=== PATIENT | male | born 1965 | race African-American/Black ===

== ENCOUNTER 2016-08-13 09:48 | Emergency (ER) | payer OTHER ==
[2016-08-13 10:39] LABS: BASOPHIL 0.2 % (0-2); EOSINOPHIL 0.6 % (0-5); HCT 43.4 % (42.0-52.0); HGB 15.3 g/dl (13.2-18.0); LYMPHOCYTE 16.9 % (15-48); MCHC 35.3 g/dL (32.0-36.0); MCV 93.5 fL (78.0-100.0); MONOCYTE 12.4 % (0-12); MPV 9.1 fL (6.0-9.5); NEUTROPHIL 69.9 % (41-80); PLT 333 K/uL (150-400); RBC 4.64 M/uL (4.70-6.00); RDW 13.9 % (11.5-14.0); WBC 8.9 K/uL (4.0-10.5)
[2016-08-13 10:59] LABS: ALBUMIN 4.6 g/dL (3.5-5.0); BILIRUBIN - TOTAL 0.4 mg/dL (0.1-1.0); CREATININE 0.8 mg/dL (0.7-1.2); POTASSIUM 4.3 mmol/L (3.5-5.1); TOTAL PROTEIN 8.6 g/dL (6.4-8.3)
[2016-08-13 11:01] LABS: LACTIC ACID 1.1 mmol/L (0.5-2.2)
[2016-08-13 12:08] LABS: BILIRUBIN NEGATIVE (NEGATIVE); BLOOD 1+ Ery/uL (NEGATIVE); CLARITY CLEAR (CLEAR); COLOR YELLOW (YELLOW); GLUCOSE (U) NORMAL (NORMAL); KETONE (U) TRACE mg/dL (NEGATIVE); LEUKOCYTES NEGATIVE Leu/uL (NEGATIVE); NITRITE NEGATIVE (NEGATIVE); PROTEIN TRACE (LOW) mg/dL (NEGATIVE); SPECIFIC GRAVITY 1.015 (1.001-1.030); UROBILINOGEN 0.2 mg/dL (0.2-1.0)
[2016-08-13 12:21] LABS: URINARY RBC RARE
== END 2016-08-13 13:56 | disposition home or self-care (01) ==
LOC: FER 09:48
PROVIDERS: Nurse Practitioner
DX: N50.9 Disorder of male genital organs, unspecified (principal); F17.210 Nicotine dependence, cigarettes, uncomplicated; Z88.0 Allergy status to penicillin; Z88.6 Allergy status to analgesic agent
CPT/HCPCS: 36415; 72193; 76870; 80053; 81001; 83605; 85025; Q9967

== ENCOUNTER 2020-08-15 19:08 | Emergency (ER) | payer OTHER ==
[~2020-08-15 19:08] MED LIST: AMLODIPINE BESYL5 MG PO; ATORVASTATIN CA80 MG PO; LOPERAMIDE2 M1 PO; NAPROXEN500 MG PO; NORVASC2.5 MG PO; PRINIVIL20 MG PO
[2020-08-15 20:49] LABS: BASOPHIL 0.7 % (0-2); EOSINOPHIL 1.4 % (0-5); HCT 34.8 % (42.0-52.0); HGB 12.1 g/dl (13.2-18.0); MCH 34.1 pg (25.0-31.0); MCHC 34.8 g/dL (32.0-36.0); MONOCYTE 14.6 % (0-12); MPV 9.5 fL (6.0-9.5); NEUTROPHIL 48.9 % (41-80); NRBC 0; PLT 338 K/uL (150-400); RBC 3.55 M/uL (4.70-6.00); RDW 12.9 % (11.5-14.0); WBC 7.1 K/uL (4.0-10.5)
[2020-08-15 20:56] LABS: INR 0.98 (0.9-1.2); PROTHROMBIN TIME 12.3 SECONDS (11.4-13.6)
[2020-08-15 21:03] LABS: CREATININE 0.72 mg/dL (0.67-1.17); POTASSIUM 4.2 mmol/L (3.5-5.1)
[2020-08-15 21:04] LABS: ALBUMIN 3.3 g/dL (3.4-5.0); BILIRUBIN - TOTAL 0.2 mg/dL (0.2-1.0); GLOBULIN (CALCULATION) 4.2 g/dL; TOTAL PROTEIN 7.5 g/dL (6.4-8.2)
== END 2020-08-15 21:28 | disposition left against medical advice (07) ==
LOC: FER 19:08
PROVIDERS: Emergency Medicine
DX: G45.9 Transient cerebral ischemic attack, unspecified (principal); I10 Essential (primary) hypertension; F17.210 Nicotine dependence, cigarettes, uncomplicated; Z88.0 Allergy status to penicillin; Z88.6 Allergy status to analgesic agent
CPT/HCPCS: 36415; 70450; 71045; 80053; 84484; 85025; 85610; 93005

== ENCOUNTER 2021-01-06 08:05 | Emergency (ER) | payer OTHER ==
[2021-01-06 09:00] LABS: BASOPHIL 0.5 % (0-2); EOSINOPHIL 0.9 % (0-5); HCT 36.4 % (42.0-52.0); HGB 12.4 g/dl (13.2-18.0); LYMPHOCYTE 30.8 % (15-48); MCHC 34.1 g/dL (32.0-36.0); MCV 99.7 fL (78.0-100.0); MONOCYTE 12.6 % (0-12); MPV 9.8 fL (6.0-9.5); NEUTROPHIL 54.9 % (41-80); NRBC 0; PLT 265 K/uL (150-400); RBC 3.65 M/uL (4.70-6.00); RDW 13.4 % (11.5-14.0)
[2021-01-06 09:04] LABS: BILIRUBIN - TOTAL 0.3 mg/dL (0.2-1.0); BUN/CREAT RATIO (CALC) 19.5 RATIO; CREATININE 0.87 mg/dL (0.67-1.17); GLOBULIN (CALCULATION) 3.3 g/dL; POTASSIUM 4.2 mmol/L (3.5-5.1); TOTAL PROTEIN 7.3 g/dL (6.4-8.2)
== END 2021-01-06 09:33 | disposition home or self-care (01) ==
LOC: FER 08:05
PROVIDERS: Internal Medicine
DX: I10 Essential (primary) hypertension (principal); F17.210 Nicotine dependence, cigarettes, uncomplicated; Z88.0 Allergy status to penicillin; Z88.6 Allergy status to analgesic agent
CPT/HCPCS: 36415; 80053; 84443; 84484; 85025; 93005; J3490

== ENCOUNTER 2021-03-16 08:51 | Emergency (ER) | payer OTHER | END 2021-03-16 11:25 | disposition home or self-care (01) | LOC: FER 08:51 | DX: S20.211A Contusion of right front wall of thorax, initial encounter (principal); I10 Essential (primary) hypertension; Z88.0 Allergy status to penicillin; Z88.6 Allergy status to analgesic agent; F17.200 Nicotine dependence, unspecified, uncomplicated; W01.190A Fall on same level from slipping, tripping and stumbling with subsequent striking against furniture, initial encounter | CPT/HCPCS: 71046; 94010 ==

== ENCOUNTER 2021-04-11 03:06 | Emergency (ER) | payer OTHER ==
[2021-04-11 04:01] LABS: ALBUMIN 3.7 g/dL (3.4-5.0); BILIRUBIN - TOTAL 0.2 mg/dL (0.2-1.0); BUN/CREAT RATIO (CALC) 16.5 RATIO; CREATININE 0.85 mg/dL (0.67-1.17); GLOBULIN (CALCULATION) 4.2 g/dL; TOTAL PROTEIN 7.9 g/dL (6.4-8.2)
[2021-04-11 04:21] LABS: LACTIC ACID 3.2 mmol/L (0.4-1.9)
[2021-04-11 04:55] LABS: BASOPHIL 0.5 % (0-2); EOSINOPHIL 0.6 % (0-5); HCT 37.2 % (42.0-52.0); HGB 13.1 g/dl (13.2-18.0); LYMPHOCYTE 36.2 % (15-48); MCH 34.4 pg (25.0-31.0); MCHC 35.2 g/dL (32.0-36.0); MCV 97.6 fL (78.0-100.0); MONOCYTE 10.7 % (0-12); NEUTROPHIL 50.8 % (41-80); NRBC 0; PLT 326 K/uL (150-400); RBC 3.81 M/uL (4.70-6.00); RDW 12.7 % (11.5-14.0); WBC 9.3 K/uL (4.0-10.5)
[2021-04-11] MEDS ORDERED: ONDANSETRON ODT4 MG PO (05:41)
[2021-04-11] MEDS ORDERED: VENTOLIN HFA18 GM INH (05:41)
[2021-04-11] MEDS ORDERED: MEDROL 4MG DOSEP4 MG PO (05:41)
[2021-04-11] MEDS ORDERED: ZPAK PO (05:41)
== END 2021-04-11 08:00 | disposition home or self-care (01) ==
LOC: FER 03:06
PROVIDERS: Emergency Medicine
DX: J44.0 Chronic obstructive pulmonary disease with (acute) lower respiratory infection (principal); J18.9 Pneumonia, unspecified organism; I10 Essential (primary) hypertension; F17.200 Nicotine dependence, unspecified, uncomplicated; Z20.822 Contact with and (suspected) exposure to COVID-19; Z88.0 Allergy status to penicillin; Z88.6 Allergy status to analgesic agent; Z79.899 Other long term (current) drug therapy
CPT/HCPCS: 36415; 36600; 71275; 80053; 82803; 83605; 84145; 84484; 85025; 93005; J1100; J2405; J3475; J3480; J7030; J7050; Q9967; U0002